=== PATIENT | male | born 1960 | race Caucasian/White ===

== ENCOUNTER 2017-02-22 18:27 | Emergency (ER) | payer MEDICAID, MEDICARE ==
--- NOTE | 2017-02-22 18:52 | ERNOTE ---
Medical Problem HPI - General Chief Complaint: General Assessment Time Seen by Provider: 02/22/17 18:47 Source: patient Exam Limitations: no limitations - Immun/Allergies/Home Medications Allergies/Adverse Reactions: Allergies Unobtainable Allergy (Verified 02/22/17 18:45) Home Medications: HOME MEDICATIONS NK [No Home Medication] 02/22/17 [Last Taken Unknown] - History of Present History Narrative: Patient is here for his monthly shot of Haldol decanoate. Patient has underlying history of psychosis and always does better when he stays on his multiple injections of Haldol. Timing: constant Review of Systems - Review of Systems Constitutional: Present: no symptoms reported EYE: Present: no symptoms reported ENT: Present: no symptoms reported Respiratory: Present: no symptoms reported Cardiology: Present: no symptoms reported Gastrointestinal/Abdominal: Present: no symptoms reported Genitourinary: Present: no symptoms reported Musculoskeletal: Present: no symptoms reported Skin: Present: no symptoms reported Neurological: Present: no symptoms reported Endocrine: Present: no symptoms reported Hematologic/Lymphatic: Present: no symptoms reported Psych: Present: no symptoms reported - Patient's Past Medical History Patient History - Medical: No pertinent hx, Other - Schizophrenia Patient History - Cardiac/Respiratory: No pertinent hx Patient History - Cancer: No Hx of Cancer Patient History - Surgical Procedures: No surgical history Patient History - Other: None - Social History Living Situations: alone Psych History: No pertinent hx Smoking Status: Current every day smoker Have you smoked in the past 12 months: No Do you dip or chew tobacco: No Physical Exam - Physical Exam General Appearance: Present: wd/wn, alert, no apparent distress Eye Exam: Normal inspection: bilateral, PERRL: bilateral Ears, Nose, Throat: Present: normal ENT inspection, H, normal pharynx Neck: Present: normal inspection, nontender Respiratory: Present: no respiratory distress, normal breath sounds, no accessory muscle use, chest nontender, lungs clear Cardiovascular/Chest: Present: regular rate, rhythm, no murmur, normal peripheral pulses Gastrointestinal/Abdominal: Present: normal bowel sounds, nontender, nondistended, soft, no organomegaly Rectal Exam: Present: deferred Back Exam: Present: normal inspection, normal range of motion Extremity Exam: Present: normal inspection, non-tender, no edema, normal range of motion Neurological Exam: Present: alert, oriented, normal mood/affect Skin Exam: Present: normal color, warm/dry Lymphatic Exam: Present: no adenopathy ED Progress - Vital Signs Patient's Vital Signs:: I have reviewed the patient's vital signs. Vital Signs: Vital Signs 02/22/17 18:41 Temperature 37.2 C Pulse Rate 106 H Respiratory 16 Rate Blood Pressure 172/93 O2 Sat by Pulse 99 Oximetry - Progress/Reassessment Chief Complaint: General Assessment Plan - Plan Plan: He agrees he only feels better when he takes his 100 mg of Haldol decanoate IM and we would like to provide that for him tonight, however we do not have the long acting drug in the ED. We will give him 2mg IM of the regular Haldol and he will see Sylvia Wick in the AM. Departure - Departure Clinical Impression: Schizophrenia Qualifiers: Schizophrenia type: undifferentiated schizophrenia Qualified Code(s): F20.3 - Undifferentiated schizophrenia Disposition: Home self-care Condition: Good Instructions: Schizophrenia Referrals: Sylvia Wick ARNP [[facility]] -
[2017-02-22] MEDS ORDERED: HALOPERIDOL DECANOATE 100 MG/ML IM ONE (18:55)
--- OUTSIDE RECORDS SUMMARY | 2017-02-22 19:09 | XMS REPORT | Continuity of Care Document ---
:1960 Author Organization [facility] [place] [address] Care Team Providers Name Role Phone Doug Nunes Primary Care Provider [phone] Source Comments This disclosure is being made pursuant to the [employer] program and maynot contain all information available regarding this patient.[facility] Active Allergies and Adverse Reactions Allergen Noted Date Severity Reactions Comments Travasol 12/28/2011 High Swelling Current Medications Be aware that medications may not be up to date as of this document. Alwaysverify current medications with the patient. Prescription Sig. Disp. Refills Start Date End Date Status felodipine (PLENDIL) Take 1 tablet by 30 tablet 0 07/15/2014 Active 10 MG 24 hr tablet mouth daily. Indications: High Blood Pressure potassium chloride SA Take 1 tablet by 30 tablet 0 07/15/2014 Active (K-DUR,KLOR-CON) 20 mouth 2 (two) MEQ tablet times daily with meals. Active Problems Problem Noted Date Paranoid schizophrenia, chronic condition with acute exacerbation (HCC) 2013 Schizophrenia, disorganized, chronic with acute exacerbation (HCC) 12/28/2011 Social History Tobacco Use Types Packs/Day Years Used Date Current Every Day Smoker 1 Tobacco Cessation:Ready to Quit: No; Counseling Given: Yes Comments: Last Filed Vital Signs Vital Sign Reading Time Taken Blood Pressure 112/80 07/15/2014 8:21 AM CDT Pulse 70 07/15/2014 8:21 AM CDT Temperature 35.9 C (96.6 F) 07/15/2014 8:21 AM CDT Respiratory Rate 16 07/14/2014 4:50 PM CDT Height 1.676 m (5' 5.98") 07/10/2014 3:20 AM CDT Weight 95.845 kg (211 lb 4.8 oz) 07/10/2014 1:00 PM CDT Body Mass Index 34.12 07/10/2014 1:00 PM CDT Oxygen Saturation - - Plan of Care Health Maintenance Due Date Last Done Comments Tetanus/Pertussis (1 - Tdap) 1980 Colonoscopy 2011 Well Adult Visit 2011 Influenza Immunization (#1) 2016 Results from Last 3 Months Not on file
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
[2017-02-22] MEDS ORDERED: HALOPERIDOL LACTATE 5 MG/ML VIAL IM ONE (19:22)
[2017-02-22] MEDS ORDERED: HALOPERIDOL LACTATE 5 MG/ML VIAL ONE (19:27)
[2017-02-22] MEDS ORDERED: THIAMINE HCL 100 MG/ML VIAL ONE (19:29)
[2017-02-22 21:32] VITALS: BP 168/87
== END 2017-02-22 19:45 | disposition home or self-care (01) ==
LOC: ER 18:27
DX: F20.3 Undifferentiated schizophrenia (principal); F17.200 Nicotine dependence, unspecified, uncomplicated

== ENCOUNTER 2017-05-04 08:55 | Emergency (ER) | payer MEDICARE ==
[2017-05-04 09:04] VITALS: BP 195/132
--- NOTE | 2017-05-04 09:16 | ERNOTE ---
Psychological HPI - General Chief Complaint: Psychiatric Problem Source: Reports: other Exam Limitations: Reports: clinical condition - Immun/Allergies/Home Medications Allergies/Adverse Reactions: Allergies Unobtainable Allergy (Verified 05/04/17 09:04) Home Medications: HOME MEDICATIONS NK [No Home Medication] 02/22/17 [Last Taken Unknown] - History of Present Illness Narrative: Patient is brought in by the willow worker as he is court committed. He seems to have missed his appointment for out patient medication (last February 24), missed his hearing and is court committed for psychiatric evaluation. Patient denies any complaints currently, states that the shot gives him a headache. - Patient's Past Medical History Patient History - Medical: Other Patient History - Cardiac/Respiratory: No pertinent hx Patient History - Cancer: No Hx of Cancer Patient History - Surgical Procedures: No surgical history Patient History - Other: None - Social History Living Situations: home Abuse History: No History of abuse Psych History: Hx of Schizophrenia Smoking Status: Current every day smoker Have you smoked in the past 12 months: Yes Alcohol Use: none Drug Use: none - Immunizations Immunizations Up to Date: Yes Hx Pneumococcal Vaccination: No History of Influenza Vaccine: No Physical Exam - Physical Exam General Appearance: Present: wd/wn, alert, no apparent distress, other - unkept , dirty Head Exam: Present: normal inspection - dirty, no evidence of injury Eye Exam: Normal inspection: bilateral Respiratory: Present: no respiratory distress, normal breath sounds, no accessory muscle use, lungs clear Cardiovascular/Chest: Present: regular rate, rhythm, no murmur Neurological Exam: Present: alert, other - cooperative, friendly, knows name and location, keeps talking to himself Skin Exam: Present: normal color, warm/dry, other - dirty ED Progress - Results and Orders Patient's Lab Results:: I have reviewed the patient's lab results. - Vital Signs Patient's Vital Signs:: I have reviewed the patient's vital signs. Vital Signs: Vital Signs 05/04/17 08:59 Temperature 36.6 C Pulse Rate 111 H Respiratory 16 Rate Blood Pressure 195/132 O2 Sat by Pulse 96 Oximetry - Progress/Reassessment Chief Complaint: Psychiatric Problem Progress Note-Subjective: 05/04/17 10:37 message to Sylvia Wick 05/04/17 11:16 discussed with Sylvia Wick, patient is to have monthly injections and last had his in January, is supposed to be court committed for medication injections and office visits, no benefit to try to find placement for him, nurse from office will come and give patient his injection. 05/04/17 11:43 patient received injection of Invega by Lorraine from psychiatry office discussed case with Judge Gayle and intention of psychiatrist to have him commited for office visits and medication. Patient does not seem to be in danger to harm himself or others, verbal order to release patient by Judge Gayle Departure Clinical Impression: Schizophrenia Qualifiers: Schizophrenia type: unspecified Qualified Code(s): F20.9 - Schizophrenia, unspecified - Departure Disposition: Home self-care Condition: Fair Instructions: Schizophrenia Referrals: Sylvia Wick ARNP [[facility]] - 05/11/17 10:30 am
[2017-05-04 09:32] LABS: Hematocrit 46.5 % (42.0-52.0); Hemoglobin 15.6 gm/dL (13.5-18.0); Mean Cell Volume 93.6 fl (78-100); Mean Corpuscular Hemoglobin 31.4 pg (27-31); Mean Corpuscular Hgb Conc 33.5 g/dl (32-36); Mean Platelet Volume 8.7 fl (6.0-9.5); Neutrophil # 6.2 K/mm3 (1.3-6.0); Platelet Count 341 K/mm3 (150-450); Red Blood Count 4.97 M/mm3 (4.7-6.0); Red Cell Distribution Width 12.6 % (11.5-14.0); White Blood Count 8.7 K/mm3 (4.0-10.5)
[2017-05-04 09:57] LABS: ALT 19 U/L (19-67); AST 13 U/L (0-48); Albumin * 3.2 gm/dl (3.4-5.0); Alkaline Phosphatase * 188 U/L (50-170); Anion Gap 11.4 mmol/L (6.8-13.8); BUN/Creatinine Ratio 4.5 (9.0-21.6); Bilirubin, Total 0.2 mg/dL (0.0-1.1); Blood Urea Nitrogen 4 mg/dL (6-23); Ca. Corrected For Albumin 8.8 mg/dL (8.4-10.2); Calcium * 8.5 mg/dL (7.9-10.9); Carbon Dioxide 32.7 mmol/L (24-32.6); Chloride 98 mmol/L (97-106); Glucose * 165 mg/dL (70-110); Potassium 3.1 mmol/L (3.4-4.6); Salicylate Less than 2.8 mg/dL (2.8-20.0); Sodium 139 mmol/L (132-142); TSH * 2.366 uIU/mL (0.358-3.74); Total Protein 7.6 gm/dL (6.2-8.2)
[2017-05-04 10:38] LABS: Urine Bilirubin Negative (NEGATIVE); Urine Blood Negative /ul (NEGATIVE); Urine Ketone Negative (NEGATIVE); Urine Nitrite Negative (NEGATIVE); Urine Protein 15 mg/dL (NEGATIVE); Urine Specific Gravity 1.015 SP.GR. (1.005-1.030); Urine Urobilinogen Normal (NORMAL)
--- OUTSIDE RECORDS SUMMARY | 2017-05-04 10:41 | XMS REPORT | Clinical Summary ---
:1960 Author Organization [facility] [place] [address] Care Team Providers Name Role Phone Unavailable Primary Care Provider Unavailable Source Comments This disclosure is being made pursuant to the [employer] program and maynot contain all information available regarding this patient.[facility] Allergies Active Allergy Reactions Severity Noted Date Comments Travasol Swelling High 12/28/2011 Current Medications Be aware that medications may not be up to date as of this document. Alwaysverify current medications with the patient. Prescription Sig. Disp. Refills Start Date End Date Status felodipine (PLENDIL) Take 1 tablet by 30 tablet 0 07/15/2014 Active 10 MG 24 hr mouth daily. tabletIndications:Hype Indications: High rtension Blood Pressure potassium chloride SA Take 1 [...] Cessation:Ready to Quit: No; Counseling Given: Yes Sex Assigned at Date Recorded Not on file Last Filed Vital Signs Vital Sign Reading Time Taken Blood Pressure 112/80 07/15/2014 8:21 AM CDT Pulse 70 07/15/2014 8:21 AM CDT Temperature 35.9 C (96.6 F) 07/15/2014 8:21 AM CDT Respiratory Rate 16 07/14/2014 4:50 PM CDT Oxygen Saturation - - Inhaled Oxygen Concentration - - Weight 95.8 kg (211 lb 4.8 oz) 07/10/2014 1:00 PM CDT Height 167.6 cm (5' 5.98") 07/10/2014 3:20 AM CDT Body Mass Index 34.12 07/10/2014 1:00 PM CDT Plan of Treatment Health Maintenance Due Date Last Done Comments Tetanus/Pertussis (1 - Tdap) 1980 Colonoscopy 2011 Well Adult Visit 2011 INFLUENZA IMMUNIZATION (#1) 2017 Results Not on filefrom Last 3 Months Insurance Payer Benefit Plan / Subscriber ID Type Phone Address Group MEDICARE MEDICARE A AND B [id number] [phone] [address] [place] [address] [employer] [id number] ORDERED ORDERED Home: [address] [address] [phone] [place], [place] [id number]
[2017-05-04 10:49] LABS: Urine Appearance Clear; Urine Bacteria TRACE; Urine Color Yellow; Urine RBC TRACE /hpf (0-5); Urine WBC TRACE /hpf (0-5)
[2017-05-04 10:51] LABS: Cocaine Ur Negative (NEGATIVE); Urine Barbiturate Negative (NEGATIVE); Urine Benzodiazepines Negative (NEGATIVE); Urine PCP Negative (NEGATIVE); Urine THC Negative (NEGATIVE)
[2017-05-04 10:59] LABS: Urine Opiates Negative (NEGATIVE)
== END 2017-05-04 13:03 | disposition home or self-care (01) ==
LOC: ER 08:55
DX: F20.9 Schizophrenia, unspecified (principal); F17.200 Nicotine dependence, unspecified, uncomplicated
CPT/HCPCS: 36415; 80053; 80307; 81001; 84443; 85025; 99284; G0480; G0481

== ENCOUNTER 2017-05-30 17:24 | Emergency (ER) | payer MEDICARE, MEDICAID ==
--- NOTE | 2017-05-30 17:43 | ERNOTE ---
<Jarad Henry - Last Filed: 05/30/17 19:40> Psychological HPI - General Chief Complaint: Psychiatric Problem Source: Reports: patient Exam Limitations: Reports: clinical condition - patient has underlying schizophrenia - Immun/Allergies/Home Medications Allergies/Adverse Reactions: Allergies Unobtainable Allergy (Verified 05/30/17 17:31) Home Medications: HOME MEDICATIONS NK [No Home Medication] 02/22/17 [Last Taken Unknown] - History of Present Illness Narrative: Patient is extraordinarily difficult to understand as he speaks in an almost guttural phrasing. Patient missed a court date 4 days ago and I suspect that his schizophrenia is not being treated at the current time. Patient does not appear to understand most anything is going on here. Time Seen by Provider: 05/30/17 17:34 Arrived by: Reports: police Onset/duration: Reports: continues in ED Intent: Reports: other - patient appears disorganized in his thinking Situational Problems: Reports: legal problems Associated Symptoms: Reports: confused Review of Systems - Review of Systems Constitutional: Present: See HPI EYE: Present: no symptoms reported ENT: Present: no symptoms reported Respiratory: Present: no symptoms reported Cardiology: Present: no symptoms reported Gastrointestinal/Abdominal: Present: no symptoms reported Genitourinary: Present: no symptoms reported Musculoskeletal: Present: no symptoms reported Skin: Present: no symptoms reported Neurological: Present: no symptoms reported Endocrine: Present: no symptoms reported Hematologic/Lymphatic: Present: no symptoms reported Psych: Present: See HPI - Patient's Past Medical History Patient History - Medical: Other - schizophrenia Patient History - Cardiac/Respiratory: No pertinent hx Patient History - Cancer: No Hx of Cancer Patient History - Surgical Procedures: No surgical history Patient History - Other: None - Social History Living Situations: home Abuse History: No History of abuse Psych History: Hx of Schizophrenia Alcohol Use: none Drug Use: none - Immunizations Immunizations Up to Date: Yes Hx Pneumococcal Vaccination: No History of Influenza Vaccine: No Physical Exam - Physical Exam General Appearance: Present: wd/wn, alert, other - patient appears confused and states that the court did not contact him about the potential dates, despite having paperwork that showed the date patient does not appear to understand Head Exam: Present: normal inspection, no evidence of injury Eye Exam: Normal inspection: bilateral, PERRL: bilateral Ears, Nose, Throat: Present: normal ENT inspection, H, normal pharynx Neck: Present: normal inspection, nontender Respiratory: Present: no respiratory distress, normal breath sounds, no accessory muscle use, chest nontender, lungs clear Cardiovascular/Chest: Present: regular rate, rhythm, no murmur, normal peripheral pulses Gastrointestinal/Abdominal: Present: normal bowel sounds, nontender, nondistended, soft, no organomegaly Rectal Exam: Present: deferred Back Exam: Present: normal inspection, normal range of motion Extremity Exam: Present: normal inspection, non-tender, no edema, normal range of motion Neurological Exam: Present: disoriented to time, disoriented to situation, other - patient does not appear to understand what exactly is transpiring here, he appears to made a relatively complete break with reality Skin Exam: Present: normal color, warm/dry Lymphatic Exam: Present: no adenopathy ED Progress - Results and Orders Patient's Lab Results:: I have reviewed the patient's lab results. - Vital Signs Patient's Vital Signs:: I have reviewed the patient's vital signs. Vital Signs: Vital Signs 05/30/17 17:27 Temperature 36.6 C Pulse Rate 93 Respiratory 12 Rate Blood Pressure 176/98 O2 Sat by Pulse 91 Oximetry - Progress/Reassessment Chief Complaint: Psychiatric Problem Progress:: Unchanged - Transfer of Care Physician Sign Out: Jarad Henry Receiving Physician: Zaki Yu Plan - Plan Plan: Miguel was here and they were unable to do a formal examination as the patient appears to be in a schizophrenic episode and is not able to answer anything rationally. The therapist believes that the patient needs to be admitted to an inpatient unit so he can be placed back on his meds and try to get him practicing again with this world. We are calling around now to try to find a facility that can take Mr. Naranjo and provided him with the care that he needs. Care is turned over to Dr. Yu at this point for further monitoring until bed placement can be accomplished. Departure Clinical Impression: Schizophrenia Qualifiers: Schizophrenia type: disorganized schizophrenia Qualified Code(s): F20.1 - Disorganized schizophrenia - Departure Condition: Good <Zaki Yu - Last Filed: 05/31/17 07:56> ED Progress - Results and Orders Patient's Lab Results:: I have reviewed the patient's lab results. - Vital Signs Vital Signs: Vital Signs 05/31/17 06:09 Pulse Rate 94 Respiratory 18 Rate Blood Pressure 133/87 O2 Sat by Pulse 85 L Oximetry - Progress/Reassessment Progress Note-Subjective: 05/31/17 07:55 PT did well throughout the night. Multiple facilities were contacted and no acceptances at this point. - Transfer of Care Physician Sign Out: Zaki Yu Receiving Physician: Jarad Henry Expected Disposition: Transfer
[2017-05-30 17:49] LABS: Hematocrit 44.5 % (42.0-52.0); Hemoglobin 14.8 gm/dL (13.5-18.0); Mean Cell Volume 94.3 fl (78-100); Mean Corpuscular Hemoglobin 31.4 pg (27-31); Mean Corpuscular Hgb Conc 33.3 g/dl (32-36); Mean Platelet Volume 8.6 fl (6.0-9.5); Neutrophil # 5.2 K/mm3 (1.3-6.0); Neutrophil % 74.9 % (42-75.0); Platelet Count 261 K/mm3 (150-450); Red Blood Count 4.72 M/mm3 (4.7-6.0)
[2017-05-30 18:06] LABS: ALT 17 U/L (19-67); AST 16 U/L (0-48); Albumin * 3.1 gm/dl (3.4-5.0); Alkaline Phosphatase * 153 U/L (50-170); Anion Gap 7.2 mmol/L (6.8-13.8); BUN/Creatinine Ratio 5.3 (9.0-21.6); Bilirubin, Total 0.6 mg/dL (0.0-1.1); Blood Urea Nitrogen 4 mg/dL (6-23); Ca. Corrected For Albumin 8.8 mg/dL (8.4-10.2); Calcium * 8.4 mg/dL (7.9-10.9); Carbon Dioxide 33.8 mmol/L (24-32.6); Chloride 98 mmol/L (97-106); Glucose * 113 mg/dL (70-110); Magnesium 1.7 mg/dL (1.2-2.8); Salicylate Less than 2.8 mg/dL (2.8-20.0); Sodium 136 mmol/L (132-142); Total Protein 7.3 gm/dL (6.2-8.2)
[2017-05-30 18:32] LABS: Cocaine Ur Negative (NEGATIVE); Urine Barbiturate Negative (NEGATIVE); Urine Benzodiazepines Negative (NEGATIVE); Urine Opiates Negative (NEGATIVE); Urine PCP Negative (NEGATIVE); Urine THC Negative (NEGATIVE)
[2017-05-30] MEDS ORDERED: ZIPRASIDONE MESYLATE 20 MG VIAL IM ONE (19:34)
[2017-05-30] MEDS ORDERED: ZIPRASIDONE MESYLATE 20 MG VIAL IM SCH (20:00)
[2017-05-30 21:30] LABS: Urine Bilirubin Negative (NEGATIVE); Urine Blood Negative /ul (NEGATIVE); Urine Ketone Negative (NEGATIVE); Urine Nitrite Negative (NEGATIVE); Urine Protein Negative (NEGATIVE); Urine Specific Gravity <=1.005 SP.GR. (1.005-1.030); Urine Urobilinogen Normal (NORMAL); Urine pH 6.5 pH (5.0-7.0)
[2017-05-30 21:40] LABS: Urine Appearance Clear; Urine Bacteria None Seen; Urine Color Pale Yellow; Urine RBC None Seen /hpf (0-5); Urine WBC None Seen /hpf (0-5)
[2017-05-31 06:12] VITALS: BP 133/87
== END 2017-05-31 18:55 | disposition home or self-care (01) ==
LOC: ER 17:24
DX: F20.9 Schizophrenia, unspecified (principal)
CPT/HCPCS: 36415; 80053; 80307; 81001; 83735; 84443; 85025; 93005; 96372; 99285; G0480; G0481